=== PATIENT | female | born 1945 | race African-American/Black ===

== ENCOUNTER 2017-06-26 16:58 | Observation (INO) | payer MEDICARE ==
[2017-06-26 17:39] LABS: #Basophils 0.1 thou/uL (0.0-0.2); #Lymphocytes 4.2 thou/uL (1.20-3.40); #Monocytes 1.2 thou/uL (0.11-0.59); #Neutrophils 9.8 thou/uL (1.40-6.50); %Basophils 0.8 % (0.0-1.0); %Eosinophils 0.3 % (0.0-10.0); %Lymphocytes 27.2 % (21.0-51.0); %Monocytes 7.6 % (0.0-10.0); Hematocrit 40.7 % (36.0-47.0); Mean Platelet Volume 6.3 fL (7.4-10.4); Red Blood Cell (RBC) Count 4.44 mill/uL (4.20-5.40); White Blood Cell (WBC) Count 15.3 thou/uL (4.8-10.8)
[2017-06-26 17:57] LABS: Troponin I Less than 0.010 ng/mL (< 0.028)
[2017-06-26 18:03] LABS: Bilirubin Small (Negative); Blood, Urine Negative (Negative); Glucose, Urine (Dipstick) Negative (Negative); Ketone, Urine Negative (Negative); Nitrite Negative (Negative); Protein, Urine (Dipstick) Trace mg/dL (Neg-Trace)
[2017-06-26 18:05] LABS: Hyaline Casts/LPF 4-6 HYALINE CAST LPF (0-3 Hyaline); Squamous Epithelial 0-3 HPF (0-3); WBC/HPF 0-3 HPF (0-3)
[2017-06-26 18:09] LABS: ALT (SGPT) 31 U/L (8-55); AST (SGOT) 57 U/L (5-34); Alkaline Phosphatase 151 U/L (40-150); Anion Gap 15 mmol/L (10-20); BUN (Urea Nitrogen) 11 mg/dL (9.8-20.1); Bilirubin, Total 0.7 mg/dL (0.2-1.2); Calc. Creatinine Clearance 0 mL/min (70-130); Carbon Dioxide 27 mmol/L (23-31); Chloride 100 mmol/L (98-107); Estimated GFR-MDRD 88
[2017-06-26 18:13] LABS: Bacteria/HPF Rare-Few HPF (None Seen); Transitional Epithelial 0-3 HPF (0-3)
--- NOTE | 2017-06-26 18:44 | ULT ---
RIGHT LOWER EXTREMITY VENOUS DUPLEX ULTRASOUND INCLUDING COLOR AND SPECTRAL DOPPLER IMAGIN06/26/17 HISTORY: 72-year-old female with right lower extremity pain. Exam performed from groin to ankle including visualized greater saphenous, common femoral, superfici al femoral, profunda femoral, popliteal, trifurcation, and posterior tibial vein regions. There is p hasic flow at all levels with normal compressibility and normal augmentation. No intraluminal thromb us. IMPRESSION: No evidence for deep venous thrombosis. POS: [facility]
--- NOTE | 2017-06-26 18:56 | RAD ---
UPRIGHT PORTABLE CHEST ONE VIEW: 06/26/17 HISTORY: 72-year-old female with fever, right knee pain, weakness, tiredness. COMPARISON: 11/02/15. FINDINGS: Monitor leads overlie the chest. Heart size is within normal limits. The lungs are clear. Arthrosis changes of both shoulders. IMPRESSION: No acute intrathoracic disease. Stable from prior study. POS: [facility]
[2017-06-26] MEDS ORDERED: Acetaminophen 500 MG TAB ONE (20:08)
[2017-06-26] MEDS ORDERED: Piperacillin/Tazobactam 3.375 GM in Sodium Chloride 0.9% 100 ML IVPB SCH (21:00)
[2017-06-26] MEDS ORDERED: Ondansetron HCl/PF 4 MG/2 ML Vial IVP PRN (21:46)
[2017-06-26] MEDS ORDERED: Acetaminophen 325 MG TAB PO PRN (21:46)
--- NOTE | 2017-06-26 21:46 | PDOC.EVN ---
Event Note - Event Note Event Note: [id number] H&P Dictated 1. sirs 2. dm type 2 3. h/o depression PLAN: SEE ORDERS
[2017-06-26] MEDS ORDERED: ALPRAZolam 0.25 MG TAB PO PRN (21:47)
[2017-06-26] MEDS ORDERED: Dextrose 5% in Water 1,000 ML IV PRN (21:48)
[2017-06-26] MEDS ORDERED: HumaLOG 300 UNITS/3 ML VIAL SC PRN ×2 (21:48)
[2017-06-26] MEDS ORDERED: Dextrose 50% Abboject 50 ML SYRINGE SLOW IVP PRN (21:48)
[2017-06-26] MEDS: Sodium Chloride 0.9% 1,000 ML IV SCH (22:49)
[2017-06-26 22:59] VITALS: BMI 32.5
[2017-06-27 05:37] LABS: Anion Gap 13 mmol/L (10-20); BUN (Urea Nitrogen) 10 mg/dL (9.8-20.1); Calc. Creatinine Clearance 100 mL/min (70-130); Calcium 9.6 mg/dL (7.8-10.44); Carbon Dioxide 23 mmol/L (23-31); Chloride 105 mmol/L (98-107); Estimated GFR-MDRD Greater than 90
[2017-06-27 05:53] LABS: #Basophils 0.1 thou/uL (0.0-0.2); #Eosinphils 0.1 thou/uL (0.0-0.7); #Lymphocytes 4.2 thou/uL (1.20-3.40); #Monocytes 1.4 thou/uL (0.11-0.59); #Neutrophils 7.1 thou/uL (1.40-6.50); %Basophils 0.6 % (0.0-1.0); %Lymphocytes 32.6 % (21.0-51.0); %Monocytes 10.6 % (0.0-10.0); Hematocrit 38.1 % (36.0-47.0); Mean Platelet Volume 6.2 fL (7.4-10.4); Red Blood Cell (RBC) Count 4.19 mill/uL (4.20-5.40); White Blood Cell (WBC) Count 12.9 thou/uL (4.8-10.8)
--- NOTE | 2017-06-27 07:15 | HP ---
DATE OF ADMISSION: 06/26/2017 CHIEF COMPLAINT: Fatigue. HISTORY OF PRESENT ILLNESS: The patient is a 72-year-old female with past medical history of breast CA, diabetes mellitus type 2, hyperlipidemia, and depression, now came in today because of the fatigue. Fatigue started approximately few days back. The patient has generalized weakness that is why she came to the ER. The patient had complained of fever. Fever started yesterday. Fever at the time of admission was 102.2. Denies any cough or sputum production, denies any dysuria, denies any nausea, denies any vomiting. Complains of loss of appetite and complains of generalized fatigue also. Denies chest pain, denies any palpitations. PAST MEDICAL HISTORY: As per HPI. PAST SURGICAL HISTORY: Hysterectomy, prior lumpectomy. SOCIAL HISTORY: Denies smoking, denies alcohol, denies any drugs. FAMILY HISTORY: Positive for heart problems. MEDICATIONS: Reviewed. REVIEW OF SYSTEMS: Constitutional: Positive for fever. Positive for chills. Positive for fatigue. Eyes: Denies any vision problems. Ears: Denies any hearing loss. Neck: Denies any neck pain. Cardiovascular System: Denies any chest pain: Respiratory System: Denies any cough, denies sputum production. Gastrointestinal: Denies nausea or vomiting. Musculoskeletal: Denies any joint deformities. Cranial Nervous System: Positive for generalized fatigue. Psychiatric System: Denies anxiety. Integumentary: Denies any rash. PHYSICAL EXAMINATION: CONSTITUTIONAL/VITAL SIGNS: At the time of H\T\P performed, blood pressure is 135/95, heart rate 93, pulse ox 98%. GENERAL: The patient appears tired. HEENT: Anterior nares patent. Nose normal. Ears normal. Teeth intact. Tongue is moist. NECK: Supple. No JVD. CARDIOVASCULAR SYSTEM: S1 and S2 present. Regular rate and rhythm. No murmurs , no rubs, no gallops. RESPIRATORY SYSTEM: No wheezing, no rhonchi present bilaterally. GASTROINTESTINAL: Abdomen is soft and nontender. No guarding, no organomegaly , no masses felt. MUSCULOSKELETAL: No edema. CRANIAL NERVOUS SYSTEM: Speech is clear, awake, and follows commands. PSYCHIATRIC: Mood is appropriate at this time. INTEGUMENTARY: No obvious rashes seen. LABORATORY DATA: At the time of H\T\P performed, UA positive for trace leukocyte esterase. White count 15.3, hemoglobin 12.5, platelet count 476. BMP showed sodium of 138, potassium 3.8, chloride 100, CO2 of 27, BUN 11, creatinine 0.78, alkaline phosphatase 151, total protein 9, and albumin 3. ASSESSMENT AND PLAN: The patient is a 72-year-old female. 1. Systemic inflammatory response syndrome, etiology unclear. Plan is to start the patient on broad-spectrum antibiotics. Plan to do blood cultures and urine culture and sensitivity. Plan to monitor the patient closely. 2. Diabetes mellitus type 2. Monitor blood sugars. We will do insulin sliding scale. 3. Fatigue. Plan to check TSH and vitamin D levels. We will monitor the patient closely. 4. Hyperlipidemia. Continue home medications. 5. History of depression. Mood is stable at this time. The case was discussed in detail with the patient. Plan to get PT, OT, and rehabilitation evaluation also. SILAS
[2017-06-27 08:15] LABS: Hemoglobin A1c 4.9 % (4.0-6.0)
[2017-06-27 08:19] LABS: ALT (SGPT) 35 U/L (8-55); AST (SGOT) 63 U/L (5-34); Alkaline Phosphatase 121 U/L (40-150); Bilirubin, Direct 0.4 mg/dL (0.1-0.3); Bilirubin, Total 0.8 mg/dL (0.2-1.2); Protein, Total 7.5 g/dL (6.0-8.3); Uric Acid 4.4 mg/dL (2.6-6.0)
[2017-06-27] MEDS: Heparin 5,000 UNITS/ML VIAL SC SCH ×2 (08:44→20:04)
[2017-06-27] MEDS: Famotidine 20 MG TAB PO SCH ×2 (08:44→20:04)
[2017-06-27] MEDS: HYDROcodone/Acetaminophen 5/325 mg Tablet PO PRN ×2 (08:46→17:41)
[2017-06-27] MEDS ORDERED: FLU VACC TS2017-18 (>65YR) 0.5 ML SYRINGE IM ONE (09:00)
[2017-06-27] MEDS ORDERED: Heparin 5,000 UNITS/ML VIAL SC SCH (09:00)
--- NOTE | 2017-06-27 10:02 | PDOC.PN ---
- Subjective Encounter Start Date: 06/27/17 Encounter Start Time: 08:30 -: old records requested/rev Patient seen and examined. No new complaints. No overnight events, has right knee pain - Objective MAR Reviewed: Yes Vital Signs & Weight: Vital Signs (12 hours) Temp Pulse Resp BP Pulse Ox 06/27/17 04:43 98.2 F 78 20 165/95 H 98 06/27/17 00:00 98.2 F 78 20 156/81 H 99 06/26/17 22:15 98.2 F 78 20 Result Diagrams: 06/27/17 04:57 06/27/17 04:57 Additional Labs: Accuchecks 06/27/17 04:48 POC Glucose 86 Phys Exam - Physical Examination Constitutional: NAD HEENT: moist MMs, sclera anicteric Neck: no JVD, supple Respiratory: no wheezing, no rales, no rhonchi Cardiovascular: RRR, no significant murmur, no rub Gastrointestinal: soft, non-tender, no distention, positive bowel sounds Musculoskeletal: no edema, pulses present Neurological: non-focal, normal sensation Lymphatic: no nodes Psychiatric: normal affect Skin: no rash, normal turgor Dx/Plan (1) Acute febrile illness Code(s): R50.9 - FEVER, UNSPECIFIED Status: Acute (2) Right knee pain Code(s): M25.561 - PAIN IN RIGHT KNEE Status: Acute Qualifiers: Chronicity: acute Qualified Code(s): M25.561 - Pain in right knee (3) UTI (urinary tract infection) Status: Acute (4) Vitamin D deficiency Code(s): E55.9 - VITAMIN D DEFICIENCY, UNSPECIFIED Status: Acute (5) Weakness generalized Code(s): R53.1 - WEAKNESS Status: Acute (6) Anxiety and depression Code(s): F41.8 - OTHER SPECIFIED ANXIETY DISORDERS Status: Chronic (7) Obesity (BMI 30.0-34.9) Code(s): E66.9 - OBESITY, UNSPECIFIED Status: Chronic - Plan cont current plan of care, continue antibiotics, PT/OT * will check CRP, uric acid * and try colchicine * medication reviewed as below * symptomatic treatment * continue levaquin * continue PT * will plan for discharge tomorrow * continue IVF. Review of Systems - Review of Systems ENT: negative: Ear Pain, Ear Discharge, Nose Pain, Nose Discharge, Nose Congestion, Mouth Pain, Mouth Swelling, Throat Pain, Throat Swelling, Other Respiratory: negative: Cough, Dry, Shortness of Breath, Hemoptysis, SOB with Excertion, Pleuritic Pain, Sputum, Wheezing Cardiovascular: negative: Chest Pain, Palpitations, Orthopnea, Paroxysmal Noc. Dyspnea, Edema, Light Headedness, Other Gastrointestinal: negative: Nausea, Vomiting, Abdominal Pain, Diarrhea, Constipation, Melena, Hematochezia, Other Genitourinary: negative: Dysuria, Frequency, Incontinence, Hematuria, Retention , Other Musculoskeletal: negative: Neck Pain, Shoulder Pain, Arm Pain, Back Pain, Hand Pain, Leg Pain, Foot Pain, Other Skin: negative: Rash, Lesions, Dale, Bruising, Other - Medications/Allergies Allergies/Adverse Reactions: Allergies Allergy/AdvReac Type Severity Reaction Status Date / Time No Known Allergies Allergy Unverified 11/02/15 15:56 Medications: Current Medications Acetaminophen (Tylenol) 650 mg PO Q4H PRN PRN Reason: Headache/Fever or Pain Hydrocodone Bitart/Acetaminophen ([place] 5/325) 1 tab PO Q4H PRN PRN Reason: Moderate Pain (4-6) Last Admin: 06/27/17 08:46 Dose: 1 tab Alprazolam (Xanax) 0.25 mg PO BID PRN PRN Reason: Anxiety Dextrose/Water (Dextrose 50%) 25 gm SLOW IVP PRN PRN PRN Reason: Hypoglycemia Famotidine (Pepcid) 20 mg PO BID COUNTS INCLUDE 234 BEDS AT THE [facility] Last Admin: 06/27/17 08:44 Dose: 20 mg Glucagon (Glucagon) 1 mg IM PRN PRN PRN Reason: Hypoglycemia Heparin Sodium (Porcine) (Heparin) 5,000 units SC BID COUNTS INCLUDE 234 BEDS AT THE [facility] Last Admin: 06/27/17 08:44 Dose: 5,000 units Dextrose/Water (D5w) 1,000 mls @ 0 mls/hr IV .Q0M PRN; As Directed PRN Reason: Hypoglycemia Levofloxacin 750 mg/ Device 150 mls @ 100 mls/hr IVPB 2200 COUNTS INCLUDE 234 BEDS AT THE [facility] Last Admin: 06/26/17 22:50 Dose: 150 mls Sodium Chloride (Normal Saline 0.9%) 1,000 mls @ 100 mls/hr IV .Q10H COUNTS INCLUDE 234 BEDS AT THE [facility] Last Admin: 06/26/17 22:49 Dose: 1,000 mls Insulin Human Lispro (Humalog) 0 units SC .MODERATE SLIDING SC PRN PRN Reason: Moderate Correctional Scale Insulin Human Lispro (Humalog) 0 units SC .BEDTIME SLIDING SC PRN PRN Reason: Bedtime Correctional Scale Ondansetron HCl (Zofran) 4 mg IVP Q6H PRN PRN Reason: Nausea/Vomiting Sertraline HCl (Zoloft) 50 mg PO DAILY [facility] Last Admin: 06/27/17 08:44 Dose: 50 mg
[2017-06-27] MEDS: Sodium Chloride 0.9% 1,000 ML IV SCH ×2 (11:11→20:13)
[2017-06-27] MEDS: Colchicine 0.6 MG TAB PO SCH (20:04)
[2017-06-28] MEDS: Sodium Chloride 0.9% 1,000 ML IV SCH ×2 (05:27→17:17)
[2017-06-28 08:14] LABS: #Eosinphils 0.1 thou/uL (0.0-0.7); #Monocytes 0.6 thou/uL (0.11-0.59); #Neutrophils 4.9 thou/uL (1.40-6.50); %Basophils 0.3 % (0.0-1.0); %Eosinophils 0.8 % (0.0-10.0); %Lymphocytes 34.5 % (21.0-51.0); %Monocytes 6.7 % (0.0-10.0); Hematocrit 32.9 % (36.0-47.0); Mean Platelet Volume 6.2 fL (7.4-10.4); Red Blood Cell (RBC) Count 3.58 mill/uL (4.20-5.40); White Blood Cell (WBC) Count 8.6 thou/uL (4.8-10.8)
[2017-06-28] MEDS: Colchicine 0.6 MG TAB PO SCH ×2 (08:14→20:41)
[2017-06-28] MEDS: Heparin 5,000 UNITS/ML VIAL SC SCH ×2 (08:15→20:42)
[2017-06-28] MEDS: Famotidine 20 MG TAB PO SCH ×2 (08:15→20:42)
[2017-06-28 08:32] LABS: Anion Gap 13 mmol/L (10-20); BUN (Urea Nitrogen) 7 mg/dL (9.8-20.1); Calc. Creatinine Clearance 105 mL/min (70-130); Carbon Dioxide 23 mmol/L (23-31); Chloride 107 mmol/L (98-107); Estimated GFR-MDRD Greater than 90
--- NOTE | 2017-06-28 10:12 | RAD ---
RIGHT KNEE 4 VIEWS: Date: 06/28/17 HISTORY: Pain. COMPARISON: None. FINDINGS: There is a suprapatellar effusion. Mild degenerative changes of patellofemoral compartment. Moderate degenerative change of medial compartment. Severe degenerative change of the lateral compartment. Mild bone demineralization. No fracture. IMPRESSION: 1. Tricompartmental degenerative change. 2. Suprapatellar effusion. POS: [facility]
--- NOTE | 2017-06-28 11:04 | PDOC.PN ---
- Subjective Encounter Start Date: 06/28/17 Encounter Start Time: 08:20 -: old records requested/rev Patient seen and examined. No new complaints. No overnight events, has right knee pain - Objective MAR Reviewed: Yes Vital Signs & Weight: Vital Signs (12 hours) Temp Pulse Resp BP Pulse Ox 06/28/17 08:00 98.4 F 81 18 149/83 H 99 06/28/17 03:46 98.2 F 78 18 132/78 98 06/27/17 23:09 98.0 F 83 18 134/76 99 I&O: 06/27/17 06/28/17 06/29/17 06:59 06:59 06:59 Intake Total 4184 1000 Balance 4184 1000 Result Diagrams: 06/28/17 08:06 06/28/17 08:06 Additional Labs: Accuchecks 06/28/17 06/27/17 06/27/17 05:15 20:01 15:18 POC Glucose 85 102 104 06/27/17 11:34 POC Glucose 104 Radiology Reviewed by me: Yes (Knee xray) Phys Exam - Physical Examination Constitutional: NAD HEENT: PERRLA, moist MMs, sclera anicteric Neck: no JVD, supple Respiratory: no wheezing, no rales, no rhonchi Cardiovascular: RRR, no significant murmur, no rub Gastrointestinal: soft, non-tender, no distention, positive bowel sounds Musculoskeletal: no edema, pulses present right Knee swelling Neurological: non-focal, normal sensation Lymphatic: no nodes Psychiatric: normal affect, A&O x 3 Skin: no rash, normal turgor Dx/Plan (1) Acute febrile illness Code(s): R50.9 - FEVER, UNSPECIFIED Status: Resolved (2) Right knee pain Code(s): M25.561 - PAIN IN RIGHT KNEE Status: Acute Qualifiers: Chronicity: acute Qualified Code(s): M25.561 - Pain in right knee Comment: due to OA (3) UTI (urinary tract infection) Status: Acute (4) Vitamin D deficiency Code(s): E55.9 - VITAMIN D DEFICIENCY, UNSPECIFIED Status: Acute (5) Weakness generalized Code(s): R53.1 - WEAKNESS Status: Acute (6) Anxiety and depression Code(s): F41.8 - OTHER SPECIFIED ANXIETY DISORDERS Status: Chronic (7) Obesity (BMI 30.0-34.9) Code(s): E66.9 - OBESITY, UNSPECIFIED Status: Chronic (8) Alzheimer's dementia Code(s): G30.9 - ALZHEIMER'S DISEASE, UNSPECIFIED Status: Chronic (9) Physical deconditioning Code(s): R53.81 - OTHER MALAISE Status: Chronic - Plan cont current plan of care, continue antibiotics, PT/OT, 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 Review of Systems - Review of Systems Constitutional: Weakness. negative: Fever, Chills, Sweats, Malaise, Other ENT: negative: Ear Pain, Ear Discharge, Nose Pain, Nose Discharge, Nose Congestion, Mouth Pain, Mouth Swelling, Throat Pain, Throat Swelling, Other Respiratory: negative: Cough, Dry, Shortness of Breath, Hemoptysis, SOB with Excertion, Pleuritic Pain, Sputum, Wheezing Cardiovascular: negative: Chest Pain, Palpitations, Orthopnea, Paroxysmal Noc. Dyspnea, Edema, Light Headedness, Other Gastrointestinal: negative: Nausea, Vomiting, Abdominal Pain, Diarrhea, Constipation, Melena, Hematochezia, Other Genitourinary: negative: Dysuria, Frequency, Incontinence, Hematuria, Retention , Other Musculoskeletal: Leg Pain. negative: Neck Pain, Shoulder Pain, Arm Pain, Back Pain, Hand Pain, Foot Pain, Other Skin: negative: Rash, Lesions, Dale, Bruising, Other - Medications/Allergies Allergies/Adverse Reactions: Allergies Allergy/AdvReac Type Severity Reaction Status Date / Time No Known Allergies Allergy Verified 06/28/17 10:06 Medications: Current Medications Acetaminophen (Tylenol) 650 mg PO Q4H PRN PRN Reason: Headache/Fever or Pain Hydrocodone Bitart/Acetaminophen ([place] 5/325) 1 tab PO Q4H PRN PRN Reason: Moderate Pain (4-6) Last Admin: 06/27/17 17:41 Dose: 1 tab Alprazolam (Xanax) 0.25 mg PO BID PRN PRN Reason: Anxiety Colchicine (Colcrys) 0.6 mg PO BID [facility] Last Admin: 06/28/17 08:14 Dose: 0.6 mg Dextrose/Water (Dextrose 50%) 25 gm SLOW IVP PRN PRN PRN Reason: Hypoglycemia Famotidine (Pepcid) 20 mg PO BID [facility] Last Admin: 06/28/17 08:15 Dose: 20 mg Glucagon (Glucagon) 1 mg IM PRN PRN PRN Reason: Hypoglycemia Heparin Sodium (Porcine) (Heparin) 5,000 units SC BID [facility] Last Admin: 06/28/17 08:15 Dose: 5,000 units Dextrose/Water (D5w) 1,000 mls @ 0 mls/hr IV .Q0M PRN; As Directed PRN Reason: Hypoglycemia Levofloxacin 750 mg/ Device 150 mls @ 100 mls/hr IVPB 2200 [facility] Last Admin: 06/27/17 23:04 Dose: 150 mls Sodium Chloride (Normal Saline 0.9%) 1,000 mls @ 100 mls/hr IV .Q10H [facility] Last Admin: 06/28/17 05:27 Dose: 1,000 mls Insulin Human Lispro (Humalog) 0 units SC .MODERATE SLIDING SC PRN PRN Reason: Moderate Correctional Scale Insulin Human Lispro (Humalog) 0 units SC .BEDTIME SLIDING SC PRN PRN Reason: Bedtime Correctional Scale Ondansetron HCl (Zofran) 4 mg IVP Q6H PRN PRN Reason: Nausea/Vomiting Sertraline HCl (Zoloft) 50 mg PO DAILY [facility] Last Admin: 06/28/17 08:14 Dose: 50 mg
[2017-06-28] MEDS ORDERED: FLUoxetine HCl 20 MG CAP PO SCH (11:45)
[2017-06-28] MEDS: Mirtazapine 30 MG TAB PO SCH (20:41)
[2017-06-28] MEDS: Donepezil HCl 10 MG TAB PO SCH (20:42)
[2017-06-28] MEDS: Gabapentin 100 MG CAP PO SCH (20:42)
[2017-06-29] MEDS: Liothyronine Sodium 25 MCG TAB PO SCH (06:04)
[2017-06-29] MEDS: Sodium Chloride 0.9% 1,000 ML IV SCH ×3 (06:06→16:52)
[2017-06-29] MEDS: Gabapentin 100 MG CAP PO SCH ×2 (08:07→21:08)
[2017-06-29] MEDS: Colchicine 0.6 MG TAB PO SCH ×2 (08:07→21:08)
[2017-06-29] MEDS: Famotidine 20 MG TAB PO SCH ×2 (08:07→21:09)
[2017-06-29] MEDS: FLUoxetine HCl 20 MG CAP PO SCH (08:08)
[2017-06-29] MEDS: Heparin 5,000 UNITS/ML VIAL SC SCH ×2 (10:30→21:10)
--- NOTE | 2017-06-29 12:47 | DIS ---
DATE OF ADMISSION: 06/26/2017 DATE OF DISCHARGE: 06/29/2017 PRIMARY CARE PHYSICIAN: Dr. Elmira Molina. DISCHARGE DISPOSITION: Rehabilitation. PRIMARY DISCHARGE DIAGNOSES: 1. Acute febrile illness, resolved. 2. Physical deconditioning. 3. Vitamin D deficiency. 4. Suspected urinary tract infection. 5. Right knee pain secondary to arthritis/gout. SECONDARY DISCHARGE DIAGNOSES: Obesity with BMI 33, anxiety and depression, Alzheimer's dementia. PRIMARY PROCEDURE/OPERATION: None. RADIOLOGICAL INVESTIGATION: Knee x-ray showed prepatellar effusion and degenerative changes. Ultra sound was negative for any DVT. Chest x-ray was normal. SIGNIFICANT LABORATORY: WBC 8.6, hemoglobin 10.2, platelets 393,000. CRP 12.14, creatinine 0.68. Hemoglobin A1c 4.9. Urinalysis suspected for UTI. Urine culture negative. Blood culture negative. Influenza negative. DISCHARGE MEDICATIONS: Colchicine 0.6 mg p.o. b.i.d. for 7 days, Aricept 10 mg p.o. daily, Prozac 4 0 mg p.o. daily, Pepcid 20 mg p.o. b.i.d., gabapentin 100 mg p.o. b.i.d., Levaquin 500 mg p.o. daily for 5 days, levothyroxine 25 mcg p.o. daily, Namenda 5 mg p.o. daily, Remeron 30 mg p.o. at bedtime , risperidone 0.5 mg p.o. daily. CONTRAINDICATIONS: None. CODE STATUS: FULL CODE. INPATIENT CONSULTANTS: None. ALLERGIES: No known drug allergy. DISCHARGE PLAN: Post hospital, the patient will be discharged to rehabilitation, when her insurance approves. HOSPITAL COURSE: A 72-year-old female with above-mentioned medical problem, who lives at home by he rself. She was brought to the emergency room by family member because the patient was not able to a mbulate and she was having pain in her right knee. She was becoming more and more weak and that is why they brought her to the ER. In the emergency room, ultrasound was negative for any DVT. Chest x-ray was normal as she was complaining of right knee pain. We did x-ray, which showed prepatellar mild effusion and degenerative changes, we suspected gout as well given her elevated white count and elevated CRP. We treated her with colchicine. Her urinalysis was suspected for UTI, but her cultu re is negative. While in hospital, she was given levofloxacin on discharge. We finished complete c ourse of therapy. At this point, the patient is not safe for discharge to go home. Family member cannot take care of her at home. Patient needs short term rehabilitation and that is why we did PT, OT evaluation and r ehab screening. Rehabilitation is going to accept her once her insurance approves to go there. Overall, this patient is medically stable for discharge. The patient is seen and examined at [facility] today. PHYSICAL EXAMINATION VITAL SIGNS: Currently, temperature 97.8, pulse 81, respiratory rate 16, saturation 98%, blood pres sure 144/83. Weight 189 pounds. GENERAL: The patient is alert, awake, in no acute distress. LUNGS: Clear. CARDIAC: S1, S2 regular without any murmur. ABDOMEN: Soft and benign. EXTREMITIES: No edema. NEUROLOGIC: Nonfocal examination. Paper work for discharge done. Discharge medication reconciliation done.
--- NOTE | 2017-06-29 15:59 | PDOC.PN ---
- Subjective Encounter Start Date: 06/29/17 Encounter Start Time: 15:57 Patient seen and examined. No new complaints. No overnight events - Objective MAR Reviewed: Yes Vital Signs & Weight: Vital Signs (12 hours) Temp Pulse Resp BP BP Pulse Ox 06/29/17 08:00 97.8 F 81 16 06/29/17 07:48 97.8 F 81 16 144/83 H 98 06/29/17 07:44 158/84 H 06/29/17 04:00 98.7 F 89 16 168/97 H 99 I&O: 06/28/17 06/29/17 06/30/17 06:59 06:59 06:59 Intake Total 4184 6500 Balance 4184 6500 Result Diagrams: 06/28/17 08:06 06/28/17 08:06 Additional Labs: Accuchecks 06/29/17 06/29/17 06/28/17 11:34 04:30 20:41 POC Glucose 78 82 84 06/28/17 16:04 POC Glucose 86 Phys Exam - Physical Examination Constitutional: NAD HEENT: PERRLA, moist MMs, sclera anicteric Neck: no JVD, supple Respiratory: no wheezing, no rales, no rhonchi Cardiovascular: RRR, no significant murmur, no rub Gastrointestinal: soft, non-tender, no distention, positive bowel sounds Musculoskeletal: no edema, pulses present right knee mild swelling Neurological: non-focal, normal sensation Psychiatric: normal affect, A&O x 3 Skin: no rash, normal turgor Dx/Plan (1) Acute febrile illness Code(s): R50.9 - FEVER, UNSPECIFIED Status: Resolved (2) Right knee pain Code(s): M25.561 - PAIN IN RIGHT KNEE Status: Acute Qualifiers: Chronicity: acute Qualified Code(s): M25.561 - Pain in right knee Comment: due to OA (3) UTI (urinary tract infection) Status: Acute (4) Vitamin D deficiency Code(s): E55.9 - VITAMIN D DEFICIENCY, UNSPECIFIED Status: Acute (5) Weakness generalized Code(s): R53.1 - WEAKNESS Status: Acute (6) Anxiety and depression Code(s): F41.8 - OTHER SPECIFIED ANXIETY DISORDERS Status: Chronic (7) Obesity (BMI 30.0-34.9) Code(s): E66.9 - OBESITY, UNSPECIFIED Status: Chronic (8) Alzheimer's dementia Code(s): G30.9 - ALZHEIMER'S DISEASE, UNSPECIFIED Status: Chronic (9) Physical deconditioning Code(s): R53.81 - OTHER MALAISE Status: Chronic - Plan cont current plan of care, PT/OT, social security 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 Review of Systems - Review of Systems ENT: negative: Ear Pain, Ear Discharge, Nose Pain, Nose Discharge, Nose Congestion, Mouth Pain, Mouth Swelling, Throat Pain, Throat Swelling, Other Respiratory: negative: Cough, Dry, Shortness of Breath, Hemoptysis, SOB with Excertion, Pleuritic Pain, Sputum, Wheezing Cardiovascular: negative: Chest Pain, Palpitations, Orthopnea, Paroxysmal Noc. Dyspnea, Edema, Light Headedness, Other Gastrointestinal: negative: Nausea, Vomiting, Abdominal Pain, Diarrhea, Constipation, Melena, Hematochezia, Other Genitourinary: negative: Dysuria, Frequency, Incontinence, Hematuria, Retention , Other Musculoskeletal: Leg Pain. negative: Neck Pain, Shoulder Pain, Arm Pain, Back Pain, Hand Pain, Foot Pain, Other - Medications/Allergies Allergies/Adverse Reactions: Allergies Allergy/AdvReac Type Severity Reaction Status Date / Time No Known Allergies Allergy Verified 06/28/17 10:06 Medications: Current Medications Acetaminophen (Tylenol) 650 mg PO Q4H PRN PRN Reason: Headache/Fever or Pain Hydrocodone Bitart/Acetaminophen ([place] 5/325) 1 tab PO Q4H PRN PRN Reason: Moderate Pain (4-6) Last Admin: 06/27/17 17:41 Dose: 1 tab Alprazolam (Xanax) 0.25 mg PO BID PRN PRN Reason: Anxiety Colchicine (Colcrys) 0.6 mg PO BID [facility] Last Admin: 06/29/17 08:07 Dose: 0.6 mg Dextrose/Water (Dextrose 50%) 25 gm SLOW IVP PRN PRN PRN Reason: Hypoglycemia Donepezil HCl (Aricept) 10 mg PO QPM [facility] Last Admin: 06/28/17 20:42 Dose: 10 mg Famotidine (Pepcid) 20 mg PO BID [facility] Last Admin: 06/29/17 08:07 Dose: 20 mg Fluoxetine HCl (Prozac) 40 mg PO DAILY [facility] Last Admin: 06/29/17 08:08 Dose: 40 mg Gabapentin (Neurontin) 100 mg PO BID [facility] Last Admin: 06/29/17 08:07 Dose: 100 mg Glucagon (Glucagon) 1 mg IM PRN PRN PRN Reason: Hypoglycemia Heparin Sodium (Porcine) (Heparin) 5,000 units SC BID [facility] Last Admin: 06/29/17 10:30 Dose: 5,000 units Dextrose/Water (D5w) 1,000 mls @ 0 mls/hr IV .Q0M PRN; As Directed PRN Reason: Hypoglycemia Levofloxacin 750 mg/ Device 150 mls @ 100 mls/hr IVPB 2200 [facility] Last Admin: 06/28/17 22:15 Dose: 150 mls Sodium Chloride (Normal Saline 0.9%) 1,000 mls @ 100 mls/hr IV .Q10H [facility] Last Admin: 06/29/17 11:49 Dose: Not Given Insulin Human Lispro (Humalog) 0 units SC .MODERATE SLIDING SC PRN PRN Reason: Moderate Correctional Scale Insulin Human Lispro (Humalog) 0 units SC .BEDTIME SLIDING SC PRN PRN Reason: Bedtime Correctional Scale Liothyronine Sodium (Cytomel) 25 mcg PO 0600 [facility] Last Admin: 06/29/17 06:04 Dose: 25 mcg Memantine (Namenda) 5 mg PO DAILY [facility] Last Admin: 06/29/17 08:07 Dose: 5 mg Mirtazapine (Remeron) 30 mg PO HS [facility] Last Admin: 06/28/17 20:41 Dose: 30 mg Ondansetron HCl (Zofran) 4 mg IVP Q6H PRN PRN Reason: Nausea/Vomiting Risperidone (Risperidone) 0.5 mg PO QPM [facility]
[2017-06-29] MEDS: risperiDONE 0.25 MG TAB PO SCH (21:08)
[2017-06-29] MEDS: Donepezil HCl 10 MG TAB PO SCH (21:09)
[2017-06-29] MEDS: Mirtazapine 30 MG TAB PO SCH (21:09)
[2017-06-30] MEDS: Liothyronine Sodium 25 MCG TAB PO SCH (06:16)
[2017-06-30] MEDS: Sodium Chloride 0.9% 1,000 ML IV SCH ×2 (06:16→19:26)
[2017-06-30] MEDS: Colchicine 0.6 MG TAB PO SCH ×2 (08:02→20:23)
[2017-06-30] MEDS: Heparin 5,000 UNITS/ML VIAL SC SCH ×2 (08:02→20:23)
[2017-06-30] MEDS: FLUoxetine HCl 20 MG CAP PO SCH (08:02)
[2017-06-30] MEDS: Famotidine 20 MG TAB PO SCH ×2 (08:03→20:23)
[2017-06-30] MEDS: Gabapentin 100 MG CAP PO SCH ×2 (08:03→20:23)
--- NOTE | 2017-06-30 13:37 | PDOC.PN ---
- Subjective Encounter Start Date: 06/30/17 Encounter Start Time: 09:40 Patient seen and examined. pt has joint pain. No overnight events - Objective MAR Reviewed: Yes Vital Signs & Weight: Vital Signs (12 hours) Temp Pulse Resp BP BP Pulse Ox 06/30/17 11:53 98.4 F 86 20 163/84 H 98 06/30/17 08:10 98.2 F 76 20 06/30/17 08:00 98.2 F 76 20 153/82 H 99 06/30/17 04:00 98.5 F 78 20 162/82 H 96 I&O: 06/29/17 06/30/17 07/01/17 06:59 06:59 06:59 Intake Total 6500 1440 200 Balance 6500 1440 200 Result Diagrams: 06/28/17 08:06 06/28/17 08:06 Additional Labs: Accuchecks 06/30/17 06/30/17 06/29/17 11:32 04:29 21:05 POC Glucose 93 92 82 06/29/17 17:05 POC Glucose 74 Phys Exam - Physical Examination Constitutional: NAD HEENT: PERRLA, moist MMs, sclera anicteric Neck: no JVD, supple Respiratory: no wheezing, no rales, no rhonchi Cardiovascular: RRR, no significant murmur, no rub Gastrointestinal: soft, non-tender, no distention, positive bowel sounds Musculoskeletal: no edema, pulses present Neurological: non-focal, normal sensation Lymphatic: no nodes Psychiatric: normal affect Skin: no rash, normal turgor Dx/Plan (1) Acute febrile illness Code(s): R50.9 - FEVER, UNSPECIFIED Status: Resolved (2) Right knee pain Code(s): M25.561 - PAIN IN RIGHT KNEE Status: Acute Qualifiers: Chronicity: acute Qualified Code(s): M25.561 - Pain in right knee Comment: due to OA (3) UTI (urinary tract infection) Status: Acute (4) Vitamin D deficiency Code(s): E55.9 - VITAMIN D DEFICIENCY, UNSPECIFIED Status: Acute (5) Weakness generalized Code(s): R53.1 - WEAKNESS Status: Acute (6) Anxiety and depression Code(s): F41.8 - OTHER SPECIFIED ANXIETY DISORDERS Status: Chronic (7) Obesity (BMI 30.0-34.9) Code(s): E66.9 - OBESITY, UNSPECIFIED Status: Chronic (8) Alzheimer's dementia Code(s): G30.9 - ALZHEIMER'S DISEASE, UNSPECIFIED Status: Chronic (9) Physical deconditioning Code(s): R53.81 - OTHER MALAISE Status: Chronic - Plan cont current plan of care, 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 Review of Systems - Review of Systems Constitutional: negative: Fever, Chills, Sweats, Weakness, Malaise, Other ENT: negative: Ear Pain, Ear Discharge, Nose Pain, Nose Discharge, Nose Congestion, Mouth Pain, Mouth Swelling, Throat Pain, Throat Swelling, Other Respiratory: negative: Cough, Dry, Shortness of Breath, Hemoptysis, SOB with Excertion, Pleuritic Pain, Sputum, Wheezing Cardiovascular: negative: Chest Pain, Palpitations, Orthopnea, Paroxysmal Noc. Dyspnea, Edema, Light Headedness, Other Gastrointestinal: negative: Nausea, Vomiting, Abdominal Pain, Diarrhea, Constipation, Melena, Hematochezia, Other Genitourinary: negative: Dysuria, Frequency, Incontinence, Hematuria, Retention , Other Skin: negative: Rash, Lesions, Dale, Bruising, Other - Medications/Allergies Allergies/Adverse Reactions: Allergies Allergy/AdvReac Type Severity Reaction Status Date / Time No Known Allergies Allergy Verified 06/28/17 10:06 Medications: Current Medications Acetaminophen (Tylenol) 650 mg PO Q4H PRN PRN Reason: Headache/Fever or Pain Hydrocodone Bitart/Acetaminophen ([place] 5/325) 1 tab PO Q4H PRN PRN Reason: Moderate Pain (4-6) Last Admin: 06/27/17 17:41 Dose: 1 tab Alprazolam (Xanax) 0.25 mg PO BID PRN PRN Reason: Anxiety Colchicine (Colcrys) 0.6 mg PO BID [facility] Last Admin: 06/30/17 08:02 Dose: 0.6 mg Dextrose/Water (Dextrose 50%) 25 gm SLOW IVP PRN PRN PRN Reason: Hypoglycemia Donepezil HCl (Aricept) 10 mg PO QPM [facility] Last Admin: 06/29/17 21:09 Dose: 10 mg Famotidine (Pepcid) 20 mg PO BID [facility] Last Admin: 06/30/17 08:03 Dose: 20 mg Fluoxetine HCl (Prozac) 40 mg PO DAILY [facility] Last Admin: 06/30/17 08:02 Dose: 40 mg Gabapentin (Neurontin) 100 mg PO BID [facility] Last Admin: 06/30/17 08:03 Dose: 100 mg Glucagon (Glucagon) 1 mg IM PRN PRN PRN Reason: Hypoglycemia Heparin Sodium (Porcine) (Heparin) 5,000 units SC BID [facility] Last Admin: 06/30/17 08:02 Dose: 5,000 units Dextrose/Water (D5w) 1,000 mls @ 0 mls/hr IV .Q0M PRN; As Directed PRN Reason: Hypoglycemia Levofloxacin 750 mg/ Device 150 mls @ 100 mls/hr IVPB 2200 [facility] Last Admin: 06/29/17 21:11 Dose: 150 mls Sodium Chloride (Normal Saline 0.9%) 1,000 mls @ 100 mls/hr IV .Q10H [facility] Last Admin: 06/30/17 06:16 Dose: 1,000 mls Insulin Human Lispro (Humalog) 0 units SC .MODERATE SLIDING SC PRN PRN Reason: Moderate Correctional Scale Insulin Human Lispro (Humalog) 0 units SC .BEDTIME SLIDING SC PRN PRN Reason: Bedtime Correctional Scale Liothyronine Sodium (Cytomel) 25 mcg PO 0600 [facility] Last Admin: 06/30/17 06:16 Dose: 25 mcg Memantine (Namenda) 5 mg PO DAILY [facility] Last Admin: 06/30/17 08:03 Dose: 5 mg Mirtazapine (Remeron) 30 mg PO HS [facility] Last Admin: 06/29/17 21:09 Dose: 30 mg Ondansetron HCl (Zofran) 4 mg IVP Q6H PRN PRN Reason: Nausea/Vomiting Risperidone (Risperidone) 0.5 mg PO QPM [facility] Last Admin: 06/29/17 21:08 Dose: 0.5 mg
[2017-06-30] MEDS: risperiDONE 0.25 MG TAB PO SCH (20:22)
[2017-06-30] MEDS: Donepezil HCl 10 MG TAB PO SCH (20:23)
[2017-06-30] MEDS: Mirtazapine 30 MG TAB PO SCH (20:23)
[2017-07-01] MEDS: Sodium Chloride 0.9% 1,000 ML IV SCH (04:44)
[2017-07-01] MEDS: Liothyronine Sodium 25 MCG TAB PO SCH (06:02)
[2017-07-01] MEDS: Heparin 5,000 UNITS/ML VIAL SC SCH ×2 (09:08→20:08)
[2017-07-01] MEDS: Colchicine 0.6 MG TAB PO SCH ×2 (09:09→20:08)
[2017-07-01] MEDS: FLUoxetine HCl 20 MG CAP PO SCH (09:09)
[2017-07-01] MEDS: Gabapentin 100 MG CAP PO SCH ×2 (09:09→20:08)
[2017-07-01] MEDS: Famotidine 20 MG TAB PO SCH ×2 (09:09→20:09)
[2017-07-01] MEDS: HYDROcodone/Acetaminophen 5/325 mg Tablet PO PRN (10:31)
--- NOTE | 2017-07-01 12:52 | PDOC.PN ---
- Subjective Encounter Start Date: 07/01/17 Encounter Start Time: 08:50 Patient seen and examined. No new complaints. No overnight events - Objective MAR Reviewed: Yes Vital Signs & Weight: Vital Signs (12 hours) Temp Pulse Resp BP Pulse Ox 07/01/17 08:15 98.3 F 87 16 07/01/17 08:00 98.3 F 87 16 165/84 H 98 I&O: 06/30/17 07/01/17 07/02/17 06:59 06:59 06:59 Intake Total 1440 1880 870 Balance 1440 1880 870 Result Diagrams: 06/28/17 08:06 06/28/17 08:06 Additional Labs: Accuchecks 06/30/17 06/30/17 19:58 15:53 POC Glucose 120 H 98 Phys Exam - Physical Examination Constitutional: NAD HEENT: PERRLA, moist MMs, sclera anicteric Neck: no JVD, supple Respiratory: no wheezing, no rales, no rhonchi Cardiovascular: RRR, no significant murmur, no rub Gastrointestinal: soft, non-tender, no distention, positive bowel sounds Musculoskeletal: no edema, pulses present Neurological: non-focal, normal sensation, moves all 4 limbs Lymphatic: no nodes Psychiatric: normal affect Skin: no rash, normal turgor Dx/Plan (1) Acute febrile illness Code(s): R50.9 - FEVER, UNSPECIFIED Status: Resolved (2) Right knee pain Code(s): M25.561 - PAIN IN RIGHT KNEE Status: Acute Qualifiers: Chronicity: acute Qualified Code(s): M25.561 - Pain in right knee Comment: due to OA (3) UTI (urinary tract infection) Status: Acute (4) Vitamin D deficiency Code(s): E55.9 - VITAMIN D DEFICIENCY, UNSPECIFIED Status: Acute (5) Weakness generalized Code(s): R53.1 - WEAKNESS Status: Acute (6) Anxiety and depression Code(s): F41.8 - OTHER SPECIFIED ANXIETY DISORDERS Status: Chronic (7) Obesity (BMI 30.0-34.9) Code(s): E66.9 - OBESITY, UNSPECIFIED Status: Chronic (8) Alzheimer's dementia Code(s): G30.9 - ALZHEIMER'S DISEASE, UNSPECIFIED Status: Chronic (9) Physical deconditioning Code(s): R53.81 - OTHER MALAISE Status: Chronic - Plan cont 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 Review of Systems - Review of Systems ENT: negative: Ear Pain, Ear Discharge, Nose Pain, Nose Discharge, Nose Congestion, Mouth Pain, Mouth Swelling, Throat Pain, Throat Swelling, Other Respiratory: negative: Cough, Dry, Shortness of Breath, Hemoptysis, SOB with Excertion, Pleuritic Pain, Sputum, Wheezing Cardiovascular: negative: Chest Pain, Palpitations, Orthopnea, Paroxysmal Noc. Dyspnea, Edema, Light Headedness, Other Gastrointestinal: negative: Nausea, Vomiting, Abdominal Pain, Diarrhea, Constipation, Melena, Hematochezia, Other Genitourinary: negative: Dysuria, Frequency, Incontinence, Hematuria, Retention , Other Musculoskeletal: negative: Neck Pain, Shoulder Pain, Arm Pain, Back Pain, Hand Pain, Leg Pain, Foot Pain, Other Skin: negative: Rash, Lesions, Dale, Bruising, Other - Medications/Allergies Allergies/Adverse Reactions: Allergies Allergy/AdvReac Type Severity Reaction Status Date / Time No Known Allergies Allergy Verified 06/28/17 10:06 Medications: Current Medications Acetaminophen (Tylenol) 650 mg PO Q4H PRN PRN Reason: Headache/Fever or Pain Hydrocodone Bitart/Acetaminophen ([place] 5/325) 1 tab PO Q4H PRN PRN Reason: Moderate Pain (4-6) Last Admin: 07/01/17 10:31 Dose: 1 tab Alprazolam (Xanax) 0.25 mg PO BID PRN PRN Reason: Anxiety Colchicine (Colcrys) 0.6 mg PO BID [facility] Last Admin: 07/01/17 09:09 Dose: 0.6 mg Donepezil HCl (Aricept) 10 mg PO QPM [facility] Last Admin: 06/30/17 20:23 Dose: 10 mg Famotidine (Pepcid) 20 mg PO BID [facility] Last Admin: 07/01/17 09:09 Dose: 20 mg Fluoxetine HCl (Prozac) 40 mg PO DAILY [facility] Last Admin: 07/01/17 09:09 Dose: 40 mg Gabapentin (Neurontin) 100 mg PO BID [facility] Last Admin: 07/01/17 09:09 Dose: 100 mg Heparin Sodium (Porcine) (Heparin) 5,000 units SC BID [facility] Last Admin: 07/01/17 09:08 Dose: 5,000 units Levofloxacin 750 mg/ Device 150 mls @ 100 mls/hr IVPB 2200 [facility] Last Admin: 06/30/17 20:27 Dose: 150 mls Liothyronine Sodium (Cytomel) 25 mcg PO 0600 [facility] Last Admin: 07/01/17 06:02 Dose: 25 mcg Memantine (Namenda) 5 mg PO DAILY [facility] Last Admin: 07/01/17 09:09 Dose: 5 mg Mirtazapine (Remeron) 30 mg PO HS [facility] Last Admin: 06/30/17 20:23 Dose: 30 mg Ondansetron HCl (Zofran) 4 mg IVP Q6H PRN PRN Reason: Nausea/Vomiting Risperidone (Risperidone) 0.5 mg PO QPM [facility] Last Admin: 06/30/17 20:22 Dose: 0.5 mg
[2017-07-01] MEDS: Mirtazapine 30 MG TAB PO SCH (20:08)
[2017-07-01] MEDS: risperiDONE 0.25 MG TAB PO SCH (20:08)
[2017-07-01] MEDS: Donepezil HCl 10 MG TAB PO SCH (20:08)
[2017-07-02] MEDS: Liothyronine Sodium 25 MCG TAB PO SCH (05:31)
[2017-07-02] MEDS: FLUoxetine HCl 20 MG CAP PO SCH (08:24)
[2017-07-02] MEDS: Famotidine 20 MG TAB PO SCH ×2 (08:25→20:42)
[2017-07-02] MEDS: Colchicine 0.6 MG TAB PO SCH ×2 (08:25→20:42)
[2017-07-02] MEDS: Gabapentin 100 MG CAP PO SCH ×2 (08:26→20:40)
[2017-07-02] MEDS: Heparin 5,000 UNITS/ML VIAL SC SCH ×2 (08:26→20:50)
[2017-07-02] MEDS: HYDROcodone/Acetaminophen 5/325 mg Tablet PO PRN (10:10)
--- NOTE | 2017-07-02 12:50 | PDOC.PN ---
- Subjective Encounter Start Date: 07/02/17 Encounter Start Time: 09:00 Patient seen and examined. No new complaints. No overnight events - Objective MAR Reviewed: Yes Vital Signs & Weight: Vital Signs (12 hours) Temp Pulse Resp BP Pulse Ox 07/02/17 11:58 98.6 F 92 20 111/75 95 07/02/17 08:08 98.5 F 74 12 168/90 H 96 07/02/17 08:00 98.5 F 74 12 I&O: 07/01/17 07/02/17 07/03/17 06:59 06:59 06:59 Intake Total 1880 1850 240 Output Total 1 Balance 1880 1849 240 Result Diagrams: 06/28/17 08:06 06/28/17 08:06 Additional Labs: Accuchecks 07/01/17 19:40 POC Glucose 106 Phys Exam - Physical Examination Constitutional: NAD HEENT: PERRLA, moist MMs, sclera anicteric Neck: no nodes, no JVD, supple Respiratory: no wheezing, no rales, no rhonchi Cardiovascular: RRR, no significant murmur, no rub Gastrointestinal: soft, non-tender, no distention, positive bowel sounds Musculoskeletal: no edema, pulses present Neurological: non-focal, normal sensation Lymphatic: no nodes Psychiatric: normal affect, A&O x 3 Skin: no rash, normal turgor Dx/Plan (1) Acute febrile illness Code(s): R50.9 - FEVER, UNSPECIFIED Status: Resolved (2) Right knee pain Code(s): M25.561 - PAIN IN RIGHT KNEE Status: Acute Qualifiers: Chronicity: acute Qualified Code(s): M25.561 - Pain in right knee Comment: due to OA (3) UTI (urinary tract infection) Status: Acute (4) Vitamin D deficiency Code(s): E55.9 - VITAMIN D DEFICIENCY, UNSPECIFIED Status: Acute (5) Weakness generalized Code(s): R53.1 - WEAKNESS Status: Acute (6) Anxiety and depression Code(s): F41.8 - OTHER SPECIFIED ANXIETY DISORDERS Status: Chronic (7) Obesity (BMI 30.0-34.9) Code(s): E66.9 - OBESITY, UNSPECIFIED Status: Chronic (8) Alzheimer's dementia Code(s): G30.9 - ALZHEIMER'S DISEASE, UNSPECIFIED Status: Chronic (9) Physical deconditioning Code(s): R53.81 - OTHER MALAISE Status: Chronic - Plan cont current plan of care, 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 Review of Systems - Review of Systems ENT: negative: Ear Pain, Ear Discharge, Nose Pain, Nose Discharge, Nose Congestion, Mouth Pain, Mouth Swelling, Throat Pain, Throat Swelling, Other Respiratory: negative: Cough, Dry, Shortness of Breath, Hemoptysis, SOB with Excertion, Pleuritic Pain, Sputum, Wheezing Cardiovascular: negative: Chest Pain, Palpitations, Orthopnea, Paroxysmal Noc. Dyspnea, Edema, Light Headedness, Other Gastrointestinal: negative: Nausea, Vomiting, Abdominal Pain, Diarrhea, Constipation, Melena, Hematochezia, Other Genitourinary: negative: Dysuria, Frequency, Incontinence, Hematuria, Retention , Other Musculoskeletal: Foot Pain. negative: Neck Pain, Shoulder Pain, Arm Pain, Back Pain, Hand Pain, Leg Pain, Other Skin: negative: Rash, Lesions, Dale, Bruising, Other - Medications/Allergies Allergies/Adverse Reactions: Allergies Allergy/AdvReac Type Severity Reaction Status Date / Time No Known Allergies Allergy Verified 06/28/17 10:06 Medications: Current Medications Acetaminophen (Tylenol) 650 mg PO Q4H PRN PRN Reason: Headache/Fever or Pain Hydrocodone Bitart/Acetaminophen ([place] 5/325) 1 tab PO Q4H PRN PRN Reason: Moderate Pain (4-6) Last Admin: 07/02/17 10:10 Dose: 1 tab Alprazolam (Xanax) 0.25 mg PO BID PRN PRN Reason: Anxiety Colchicine (Colcrys) 0.6 mg PO BID [facility] Last Admin: 07/02/17 08:25 Dose: 0.6 mg Donepezil HCl (Aricept) 10 mg PO QPM [facility] Last Admin: 07/01/17 20:08 Dose: 10 mg Famotidine (Pepcid) 20 mg PO BID [facility] Last Admin: 07/02/17 08:25 Dose: 20 mg Fluoxetine HCl (Prozac) 40 mg PO DAILY [facility] Last Admin: 07/02/17 08:24 Dose: 40 mg Gabapentin (Neurontin) 100 mg PO BID [facility] Last Admin: 07/02/17 08:26 Dose: 100 mg Heparin Sodium (Porcine) (Heparin) 5,000 units SC BID [facility] Last Admin: 07/02/17 08:26 Dose: 5,000 units Levofloxacin (Levaquin) 750 mg PO 2200 [facility] Last Admin: 07/01/17 20:08 Dose: 750 mg Liothyronine Sodium (Cytomel) 25 mcg PO 0600 [facility] Last Admin: 07/02/17 05:31 Dose: 25 mcg Memantine (Namenda) 5 mg PO DAILY [facility] Last Admin: 07/02/17 08:26 Dose: 5 mg Mirtazapine (Remeron) 30 mg PO HS [facility] Last Admin: 07/01/17 20:08 Dose: 30 mg Ondansetron HCl (Zofran) 4 mg IVP Q6H PRN PRN Reason: Nausea/Vomiting Risperidone (Risperidone) 0.5 mg PO QPM [facility] Last Admin: 07/01/17 20:08 Dose: 0.5 mg
[2017-07-02] MEDS: Donepezil HCl 10 MG TAB PO SCH (20:41)
[2017-07-02] MEDS: risperiDONE 0.25 MG TAB PO SCH (20:43)
[2017-07-02] MEDS: Mirtazapine 30 MG TAB PO SCH (20:43)
[2017-07-03] MEDS: Liothyronine Sodium 25 MCG TAB PO SCH (05:36)
[2017-07-03] MEDS: Famotidine 20 MG TAB PO SCH (08:40)
[2017-07-03] MEDS: FLUoxetine HCl 20 MG CAP PO SCH (08:40)
[2017-07-03] MEDS: Colchicine 0.6 MG TAB PO SCH (08:40)
[2017-07-03] MEDS: Gabapentin 100 MG CAP PO SCH (08:40)
[2017-07-03] MEDS: Heparin 5,000 UNITS/ML VIAL SC SCH (08:41)
[2017-07-03 12:23] VITALS: BP 138/56; TEMP 97.9
--- NOTE | 2017-07-03 12:41 | PDOC.PN ---
- Subjective Encounter Start Date: 07/03/17 Encounter Start Time: 09:00 Patient seen and examined. No new complaints. No overnight events - Objective MAR Reviewed: Yes Vital Signs & Weight: Vital Signs (12 hours) Temp Pulse Resp BP Pulse Ox 07/03/17 12:00 97.9 F 113 H 18 138/56 L 98 07/03/17 08:00 97.8 F 79 18 07/03/17 07:44 97.8 F 79 18 137/84 96 I&O: 07/02/17 07/03/17 07/04/17 06:59 06:59 06:59 Intake Total 1850 720 Output Total 1 Balance 1849 720 Result Diagrams: 06/28/17 08:06 06/28/17 08:06 Phys Exam - Physical Examination Constitutional: NAD HEENT: PERRLA, moist MMs, sclera anicteric Neck: no JVD, supple Respiratory: no wheezing, no rales, no rhonchi Cardiovascular: RRR, no significant murmur, no rub Gastrointestinal: soft, non-tender, no distention, positive bowel sounds Musculoskeletal: no edema, pulses present Neurological: non-focal, normal sensation, moves all 4 limbs Lymphatic: no nodes Psychiatric: normal affect Skin: no rash, normal turgor Dx/Plan (1) Acute febrile illness Code(s): R50.9 - FEVER, UNSPECIFIED Status: Resolved (2) Right knee pain Code(s): M25.561 - PAIN IN RIGHT KNEE Status: Acute Qualifiers: Chronicity: acute Qualified Code(s): M25.561 - Pain in right knee Comment: due to OA (3) UTI (urinary tract infection) Status: Acute (4) Vitamin D deficiency Code(s): E55.9 - VITAMIN D DEFICIENCY, UNSPECIFIED Status: Acute (5) Weakness generalized Code(s): R53.1 - WEAKNESS Status: Acute (6) Anxiety and depression Code(s): F41.8 - OTHER SPECIFIED ANXIETY DISORDERS Status: Chronic (7) Obesity (BMI 30.0-34.9) Code(s): E66.9 - OBESITY, UNSPECIFIED Status: Chronic (8) Alzheimer's dementia Code(s): G30.9 - ALZHEIMER'S DISEASE, UNSPECIFIED Status: Chronic (9) Physical deconditioning Code(s): R53.81 - OTHER MALAISE Status: Chronic - Plan cont current plan of care, 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 Review of Systems - Review of Systems ENT: negative: Ear Pain, Ear Discharge, Nose Pain, Nose Discharge, Nose Congestion, Mouth Pain, Mouth Swelling, Throat Pain, Throat Swelling, Other Respiratory: negative: Cough, Dry, Shortness of Breath, Hemoptysis, SOB with Excertion, Pleuritic Pain, Sputum, Wheezing Cardiovascular: negative: Chest Pain, Palpitations, Orthopnea, Paroxysmal Noc. Dyspnea, Edema, Light Headedness, Other Gastrointestinal: negative: Nausea, Vomiting, Abdominal Pain, Diarrhea, Constipation, Melena, Hematochezia, Other Genitourinary: negative: Dysuria, Frequency, Incontinence, Hematuria, Retention , Other Musculoskeletal: negative: Neck Pain, Shoulder Pain, Arm Pain, Back Pain, Hand Pain, Leg Pain, Foot Pain, Other - Medications/Allergies Allergies/Adverse Reactions: Allergies Allergy/AdvReac Type Severity Reaction Status Date / Time No Known Allergies Allergy Verified 06/28/17 10:06 Medications: Current Medications Acetaminophen (Tylenol) 650 mg PO Q4H PRN PRN Reason: Headache/Fever or Pain Hydrocodone Bitart/Acetaminophen ([place] 5/325) 1 tab PO Q4H PRN PRN Reason: Moderate Pain (4-6) Last Admin: 07/02/17 10:10 Dose: 1 tab Alprazolam (Xanax) 0.25 mg PO BID PRN PRN Reason: Anxiety Last Admin: 07/02/17 20:41 Dose: 0.25 mg Colchicine (Colcrys) 0.6 mg PO BID [facility] Last Admin: 07/03/17 08:40 Dose: 0.6 mg Donepezil HCl (Aricept) 10 mg PO QPM [facility] Last Admin: 07/02/17 20:41 Dose: 10 mg Famotidine (Pepcid) 20 mg PO BID [facility] Last Admin: 07/03/17 08:40 Dose: 20 mg Fluoxetine HCl (Prozac) 40 mg PO DAILY [facility] Last Admin: 07/03/17 08:40 Dose: 40 mg Gabapentin (Neurontin) 100 mg PO BID [facility] Last Admin: 07/03/17 08:40 Dose: 100 mg Heparin Sodium (Porcine) (Heparin) 5,000 units SC BID [facility] Last Admin: 07/03/17 08:41 Dose: 5,000 units Levofloxacin (Levaquin) 750 mg PO 2200 [facility] Last Admin: 07/02/17 20:49 Dose: 750 mg Liothyronine Sodium (Cytomel) 25 mcg PO 0600 [facility] Last Admin: 07/03/17 05:36 Dose: 25 mcg Memantine (Namenda) 5 mg PO DAILY [facility] Last Admin: 07/03/17 08:41 Dose: 5 mg Mirtazapine (Remeron) 30 mg PO HS [facility] Last Admin: 07/02/17 20:43 Dose: 30 mg Ondansetron HCl (Zofran) 4 mg IVP Q6H PRN PRN Reason: Nausea/Vomiting Risperidone (Risperidone) 0.5 mg PO QPM [facility] Last Admin: 07/02/17 20:43 Dose: 0.5 mg
--- NOTE | 2017-07-04 20:10 | EKG ---
Test Reason : Blood Pressure : / mmHG Vent. Rate : 095 BPM Atrial Rate : 095 BPM P-R Int : 118 ms QRS Dur : 078 ms QT Int : 370 ms P-R-T Axes : 055 004 048 degrees QTc Int : 464 ms Normal sinus rhythm Minimal voltage criteria for LVH, may be normal variant Borderline ECG Confirmed by WALLACE GONZALEZ D.O. ([id number]), publishing editor CRISTEL SHETH ([id number]) on 07/04/2017 8:10:41 PM Referred By: CARLOS Confirmed By:WALLACE GONZALEZ D.O.
== END 2017-07-03 13:58 ==
LOC: ERS 16:58 → T4-A 20:50
PROVIDERS: ADMIT Internal Medicine; ATTEND Internal Medicine
DX: R50.9 Fever, unspecified (principal); R53.81 Other malaise; E55.9 Vitamin D deficiency, unspecified; M17.11 Unilateral primary osteoarthritis, right knee; M10.061 Idiopathic gout, right knee; E66.9 Obesity, unspecified; F41.8 Other specified anxiety disorders; G30.9 Alzheimer's disease, unspecified; F02.80 Dementia in other diseases classified elsewhere, unspecified severity, without behavioral disturbance, psychotic disturbance, mood disturbance, and anxiety; E11.9 Type 2 diabetes mellitus without complications; R65.10 Systemic inflammatory response syndrome (SIRS) of non-infectious origin without acute organ dysfunction; R53.83 Other fatigue; E78.5 Hyperlipidemia, unspecified; Z68.33 Body mass index [BMI] 33.0-33.9, adult; Z79.899 Other long term (current) drug therapy; Z90.710 Acquired absence of both cervix and uterus; Z98.890 Other specified postprocedural states; Z85.3 Personal history of malignant neoplasm of breast
CPT/HCPCS: 51701; 71010; 73564; 80048 ×2; 80076; 82306; 82553; 82962 ×5; 83036; 84484; 84550; 85025 ×2; 86140 ×2; 87040; 87086; 87804 ×2; 93005; 93971; 96361 ×5; 96365; 96366 ×5; 96367; 97110 ×5; 97139 ×4; 97530 ×6; 97535; 99285; G0378 ×2; G8978; G8979; G8987; G8988; 36415; 36416; 80053; 81003; 81015; 84443; A4353; J1644; J1956; J2543; J3370; J7050